=== PATIENT | female | born 1960 | race Caucasian/White ===

== ENCOUNTER 2025-07-10 14:59 | Outpatient (CLI) | payer BC, MEDICARE ==
[~2025-07-10 14:59] MED LIST: ALBU18HF2 IH; CICL6.1H5 NS; DULO-31 PO; ESTR-4 PO; ESZO2TAB22 PO; LORA0.5T PO; LORA10CA PO; NORCO10T PO
[2025-07-10] MEDS: albuterol 2.5 MG/3 ML nebule NEB ONE (15:42)
[2025-07-10 15:44] VITALS: PULSE 90; RESP 16; O2SAT 98
[2025-07-10 15:56] VITALS: PULSE 92; RESP 18
== END 2025-07-10 23:59 | disposition home or self-care (01) ==
LOC: RT 14:59
PROVIDERS: ATTEND Physician Assistant
DX: J44.89 Other specified chronic obstructive pulmonary disease (principal); F17.210 Nicotine dependence, cigarettes, uncomplicated
CPT/HCPCS: 94060; 94760

== ENCOUNTER 2025-08-19 12:23 | Outpatient (CLI) | payer MEDICARE ==
--- NOTE | 2025-08-19 14:19 | RADIOLOGY REPORT ---
PROCEDURE: CT CT CHEST LOW DOSE Reason for study/Clinical History: NICOTINE DEPENDENCE, CIGARETTES, UNCOMPLICATED COMPARISON: None TECHNIQUE: Multidetector CT of the chest was performed from the lung apices to the upper abdomen without the use of intravenous contract. Axial, coronal and sagittal multiplanar reformats were performed. Radiation Dose Information: CT Dose: CTDI volume is 2.8 mGy. Dose-length product is 114.6 mGy*cm The dose indicators for CT are the volume Computed Tomography (CT) Dose Index (CTDIvol) and the Dose Length Product (DLP), and are measured in units of mGy and mGy-cm, respectively. These indicators are not patient dose, but values generated from the CT scanner acquisition factors. The report includes radiation exposure data for exposures received during this examination. FINDINGS: Lower neck: Normal thyroid. Lungs: No focal consolidation. Mild biapical scarring. No suspicious pulmonary nodules Heart/Vascular Structures: Coronary artery calcifications. Vascular calcifications of the aorta. Agatston Score 342/N3 Arterial Age 80 yrs (95 % CI 78-83 yrs) Lymph Nodes: No adenopathy Pleura: No pleural effusion or significant pneumothorax. Musculoskeletal: No acute osseous abnormality. Multilevel degenerative changes of the spine. Soft tissues: Normal. Upper abdomen: Hepatic steatosis. IMPRESSION: No suspicious pulmonary nodule. LUNG RADS Category 1: Continue annual screening with LDCT
== END 2025-08-19 23:59 | disposition home or self-care (01) ==
LOC: RAD 12:23
PROVIDERS: ATTEND Physician Assistant
DX: Z12.2 Encounter for screening for malignant neoplasm of respiratory organs (principal); F17.210 Nicotine dependence, cigarettes, uncomplicated; J44.89 Other specified chronic obstructive pulmonary disease; J98.4 Other disorders of lung; I25.10 Atherosclerotic heart disease of native coronary artery without angina pectoris; I70.0 Atherosclerosis of aorta; K76.0 Fatty (change of) liver, not elsewhere classified; M47.814 Spondylosis without myelopathy or radiculopathy, thoracic region
CPT/HCPCS: 71271